=== PATIENT | male | born 1995 | race Caucasian/White ===

== ENCOUNTER 2018-11-11 21:03 | Emergency (ER) | payer OTHER ==
[~2018-11-11] VITALS: Ht 165.1 cm; Wt 65.5 kg
[2018-11-11] MEDS ORDERED: TEST200I14 IM (21:13)
[2018-11-11] MEDS ORDERED: METOCLOPRAMIDE INJ 10MG/2ML VIAL (J2765) IV ONE (22:30)
[2018-11-11] MEDS ORDERED: KETOROLAC 30 MG/ML VIAL (J1885) IV ONE (22:30)
[2018-11-11] MEDS ORDERED: NS 1,000 ML IV ONE (22:30)
[2018-11-11] MEDS: diphenhydrAMINE INJ 50MG/ML VIAL (J1200) IV ONE ×2 (22:44→23:00)
--- NOTE | 2018-11-11 23:16 | REPVR ---
EXAM: CT Head Without Contrast EXAM DATE/TIME: 11/11/2018 10:30 PM CLINICAL HISTORY: 23 years old, male; Pain; Headache; Additional info: New onset headaches TECHNIQUE: Imaging protocol: Computed tomography of the head without contrast. Radiation optimization: All CT scans at this facility use at least one of these dose optimization techniques: automated exposure control; mA and/or kV adjustment per patient size (includes targeted exams where dose is matched to clinical indication); or iterative reconstruction. COMPARISON: No relevant prior studies available. FINDINGS: Brain: No CT evidence of acute intracranial hemorrhage or acute territorial infarction. No significant mass effect or midline shift. Basal cisterns patent. Ventricles: Normal in size and configuration. Bones/joints: No acute osseous abnormality. Sinuses: Mild polyploid bilateral sphenoid sinus mucosal thickening. Mastoid air cells: Grossly unremarkable. Soft tissues: Grossly unremarkable. IMPRESSION: 1. No CT evidence of acute intracranial pathology. 2. Additional findings, as above. Electronically signed by: Fransico Cardona On 11/11/2018 23:16:03 PM
[2018-11-12 00:48] VITALS: BP 100/56
== END 2018-11-12 00:51 | disposition home or self-care (01) ==
LOC: M ED 21:03
DX: G43.909 Migraine, unspecified, not intractable, without status migrainosus (principal); Z79.899 Other long term (current) drug therapy
CPT/HCPCS: 70450; 99284; J1885; J2765